=== PATIENT | female | born 1965 | race Caucasian/White ===

== ENCOUNTER → 2023-09-08 06:23 | Day surgery (SDC) | payer BC, SELFPAY | LOC: GI 06:23 | PROVIDERS: ATTENDING PHYSICIAN Internal Medicine Gastroenterology | DX: R12 Heartburn (principal); K31.89 Other diseases of stomach and duodenum; R14.0 Abdominal distension (gaseous); R14.2 Eructation; Z90.49 Acquired absence of other specified parts of digestive tract; K63.89 Other specified diseases of intestine; K62.5 Hemorrhage of anus and rectum; R19.7 Diarrhea, unspecified; K52.3 Indeterminate colitis; K52.89 Other specified noninfective gastroenteritis and colitis; K29.50 Unspecified chronic gastritis without bleeding | CPT/HCPCS: 43239; 44386; 88305; 88342 ==